=== PATIENT | male | born 1955 | race Caucasian/White ===

== ENCOUNTER 2022-02-23 10:27 | Day surgery (SDC) | payer MEDICARE ==
[~2022-02-23] VITALS: Ht 172.7 cm; Wt 94.1 kg
[~2022-02-23 10:27] MED LIST: AMLO5 PO; ATOR40TA PO; Aspir 8181 MG PO; C COMPLEX1000 M1 PO; CO Q10200 MG PO; Magnesium500 MG PO; ZESTRIL40 M1 PO
--- NOTE | 2022-02-23 15:07 | NUR ---
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 SITE REVIEW WITH HANDOFF PARIS ROMERO NOTED. CONFIRMED WITH DIRECTOR OF OUTREACH. MANUAL PRESSURE HELD X5MINS BY RN. VSS. PT AOX4, REPORTS PAIN AT SITE. WILL CONTINUE TO MONITOR.
--- NOTE | 2022-02-23 15:26 | NUR ---
NO NEW HEMATOMA NOTED AT L FEM ACCESS SITE. SITE IS SOFT WITH NO BLEEDING OR OOZING. L RAD SITE HAS TR BAND IN PLACE WITH 10mL AIR N BAND. NO BLEEDING, OOZING OR HEMATOMA NOTED. PT DENIES ANY PAIN. WILL CONTINUE TO MONITOR
--- NOTE | 2022-02-23 17:10 | NUR ---
ALL AIR RELEASED FROM TR BAND. NO BLEEDING OOZING OR HEMATOMA NOTED. PT SAT UP ABOUT 20 DEGREES IN BED. L FEMORAL SITE IS STABLE WITH NO BLEEDING, OOZING OR HEMATOMA NOTED. R PT SITE STABLE WITH CLEAN DEVAUGHN DRESSING ON WITH NO BLEEDING, OOZING OR HEMATOMA NOTED. PT DENIES ANY PAIN. VSS. WILL CONTINUE TO MONITOR.
--- NOTE | 2022-02-23 17:36 | NUR ---
PT SAT UP TO 45 DEGREES. NO BLEEDING, OOZING OR HEMATOMA NOTED. WILL CONTINUE TO MONITOR.
--- NOTE | 2022-02-23 18:10 | NUR ---
DISCHARGE PT AMBULATED TO RESTROOM AND DRESSED SELF WITH NO COMPLICATIONS. L FEM SITE WITH NO BLEEDING, OOZING OR HEMATOMA NOTED. TR BAND REMOVED, SITE CLEANED AND CLOTH DOT DRESSING APPLIED. WHITE BOARD PLACED BACK ON L ARM AND L ARM IN SLING. R DP SITE WITH NO BLEEDING, OOZING OR HEMATOMA NOTED. PT AND BOTH STATE THEIR UNDERSTANDING OF DC AND SITE CARE INSTRUCTIONS AND BOTH DENY ANY QUESTIONS OR CONCERNS. STATED THEY LIVE IN MOUTH OF [place]- ADVISED THAT PT RECLINE WHILE RIDING IN THE CAR. BOTH STATE THEIR UNDERSTANDING. IV DCD WITH CATH IN TACT. VSS. PT TAKEN TO EXIT VIA WHEEL CHAIR WHERE WAS WAITING WITH VEHICLE.
== END 2022-02-23 18:20 | disposition home or self-care (01) ==
LOC: MHTC 10:27
DX: I70.213 Atherosclerosis of native arteries of extremities with intermittent claudication, bilateral legs (principal); I65.21 Occlusion and stenosis of right carotid artery; E78.00 Pure hypercholesterolemia, unspecified; I45.19 Other right bundle-branch block; I10 Essential (primary) hypertension; Z87.891 Personal history of nicotine dependence; Z88.1 Allergy status to other antibiotic agents
CPT/HCPCS: 36140; 75630; 75710; 75716; 76937; 85347; 99152; 99153; C1769; C1887; C1894; J1644; J2250; J3010; J7030; J7040; Q9967